=== PATIENT | male | born 1950 | race Caucasian/White ===

== ENCOUNTER 2017-01-14 08:40 | Inpatient (IN) | payer MEDICARE ==
--- NOTE | 2017-01-14 11:25 | ED PDOC ---
HPI: Abdomen Time Seen by Provider: 01/14/17 09:54 Chief Complaint (Nursing): Abdominal Pain History Per: Patient, Family History/Exam Limitations: no limitations Onset/Duration Of Symptoms: Gradual (3 weeks), Worse Since (yesterday) Current Symptoms Are (Timing): Still Present Context: Food Location Of Pain/Discomfort: RLQ (rads to right hip) Quality Of Discomfort: Dull Associated Symptoms: denies: Fever, Chills, Nausea, Vomiting, Diarrhea, Back Pain, Chest Pain, Constipation, Urinary Symptoms Exacerbating Factors: Walking Alleviating Factors: None Last Bowel Movement: Yesterday Additional History Per: Patient Additional Complaint(s): c/o right side abdominal pain for months and unsteady gait x3 weeks. brought in by daughter. was scheduled for colonoscopy for bloody stools but lost to f/u. 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 Past Medical History Reviewed: Historical Data, Nursing Documentation, Vital Signs Vital Signs: Last Vital Signs Temp 98.0 F 01/14/17 08:46 Pulse 88 01/14/17 08:46 Resp 20 01/14/17 08:46 BP 130/81 01/14/17 08:46 Pulse Ox 98 01/14/17 14:15 - Medical History PMH: CVA - Family History Family History: States: Unknown Family Hx - Living Arrangements Living Arrangements: With Family - Social History Current smoker - smoking cessation education provided: No - Allergies Allergies/Adverse Reactions: Allergies Allergy/AdvReac Type Severity Reaction Status Date / Time No Known Allergies Allergy Verified 01/14/17 09:04 Review of Systems ROS Statement: Except As Marked, All Systems Reviewed And Found Negative Constitutional: Negative for: Fever, Chills Cardiovascular: Negative for: Chest Pain, Palpitations Respiratory: Negative for: Cough, Shortness of Breath Gastrointestinal: Positive for: Abdominal Pain. Negative for: Nausea, Vomiting , Constipation, Melena, Hematochezia, Hematemesis Genitourinary Male: Negative for: Dysuria, Penile Pain Neurological: Positive for: Incoordination. Negative for: Weakness, Numbness, Change in Speech, Confusion, Seizures, Altered Mental Status, Headache, Dizziness Physical Exam - Reviewed Nursing Documentation Reviewed: Yes Vital Signs Reviewed: Yes - Physical Exam Appears: Positive for: Uncomfortable Head Exam: Positive for: ATRAUMATIC, NORMAL INSPECTION, NORMOCEPHALIC Eye Exam: Positive for: Normal appearance, EOMI. Negative for: Nystagmus, Periorbital swelling, Periorbital tenderness, Conjunctival injection, Scleral icterus ENT: Positive for: Pharynx Is (clear,mmm). Negative for: Nasal Congestion, Pharyngeal Erythema, Tonsillar Exudate, Tonsillar Swelling Neck: Positive for: Normal, Painless ROM, Supple. Negative for: Decreased ROM, Limited ROM, Trachea Midline Cardiovascular/Chest: Positive for: Regular Rate, Rhythm, Chest Non Tender. Negative for: Edema, Gallop, Murmur, Bradycardia, Tachycardia Respiratory: Positive for: Normal Breath Sounds. Negative for: Decreased Breath Sounds, Accessory Muscle Use, Crackles, Rales, Rhonchi, Stridor, Wheezing , Respiratory Distress Pulses-Radial (L): 2+ Pulses-Radial (R): 2+ Gastrointestinal/Abdominal: Positive for: Normal Exam, Bowel Sounds, Soft. Negative for: Tenderness Male Genital Exam: Positive for: normal genitalia. Negative for: scrotum tenderness (R), scrotum tenderness (L), testicular tenderness (R), urethral discharge Back: Positive for: Normal Inspection. Negative for: L CVA Tenderness, R CVA Tenderness, Vertebral Tenderness, Decreased ROM Extremity: Positive for: Normal ROM. Negative for: Tenderness, Pedal Edema, Calf Tenderness, Deformity, Swelling Neurologic/Psych: Positive for: Alert, prison guard supervisor II-XII, Oriented, Mood/Affect (calm) , Cerebellar Tests (nml), Gait (steady). Negative for: Motor/Sensory Deficits, Aphasia, Facial Droop - Laboratory Results Result Diagrams: 01/14/17 11:30 01/14/17 11:30 - ECG O2 Sat by Pulse Oximetry: 98 Pulse Ox Interpretation: Normal - Radiology X-Ray: Interpreted by Ca X-Ray Interpretation: No Acute Disease - Progress ED Course And Treament: ct scan revelas old frontal stroked, mild pancreatitis on labs gb us reveals small stones no signs of cholecystitis will admit for mild pancreatitis Re-evaluation Time: 14:12 Condition: Unchanged Medical Decision Making Medical Decision Making: PROCEDURE: CT abdomen pelvis dated 01/14/2017 HISTORY: Right flank pain COMPARISON: Comparison made with CT scan chest and abdomen dated 12/01/2016 TECHNIQUE: Contiguous axial images of the abdomen and pelvis. Oral contrast was administered. No IV contrast given. Coronal and Sagittal reformats generated. Radiation dose: Total exam DLP = 644.99 mGy-cm. This CT exam was performed using one or more of the following dose reduction techniques: Automated exposure control, adjustment of the mA and/or kV according to patient size, and/or use of iterative reconstruction technique. FINDINGS: LOWER THORAX: Lung bases clear. . There is a small hiatal hernia with wall thickening of the distal esophagus likely due to protrusion gastric mucosa. Possibility of esophagitis not excluded. Heart appears mildly enlarged. No significant pericardial effusion LIVER: The liver is normal in size though moderate nodular contour surface contour suggestive of hepatic cirrhosis. Additionally, there also appear to be varices in the left upper quadrant of the abdomen adjacent to the spleen and left kidney and pancreatic tail. . There also mild retroperitoneal varices and re- cannulization of the umbilical vein. Findings consistent with portal hypertension. Clinical correlation recommended. No definitive hepatic mass however the liver also exhibits mild low-attenuation changes suggesting some component of fatty infiltration no other infiltrative hepatocellular disease process not excluded. . GALLBLADDER AND BILE DUCTS: Cholelithiasis once again noted. No definitive evidence of pericholecystic fluid collections. PANCREAS: The pancreas appears grossly unremarkable without mass collection or calcification. No significant pancreatic ductal dilatation. . SPLEEN: No splenic mass or collection. ADRENALS: There are no adrenal lesions. KIDNEYS AND URETERS: Kidneys demonstrate relatively symmetric size. No evidence of nephrolithiasis or hydronephrosis. . Mild retroperitoneal varices as above. BLADDER: Urinary bladder is physiologically distended. No evidence of intraluminal urinary bladder calculi REPRODUCTIVE: Prostate gland measures approximately 3.7 cm in transverse dimension. The APPENDIX: Normal-appearing appendix best seen on axial image number [id number] and coronal image number [id number]. BOWEL: Evaluation of the bowel is limited due to the lack of oral contrast material. Stomach is incompletely distended. Visualized loops of small bowel exhibit normal contour and caliber. No evidence of acute mechanical small bowel obstruction. Moderate amount of stool seen throughout the cecum ascending and transverse colon suggesting mild fecal retention/constipation. No obvious mural wall thickening PERITONEUM: Unremarkable. No fluid collection. No free air. Tiny fat containing umbilical hernia. LYMPH NODES: Unremarkable. No enlarged lymph nodes. VASCULATURE: Unremarkable. No aortic aneurysm. BONES: Multilevel degenerative spondylosis of the lower thoracic and lumbar spine. No acute compression fractures. OTHER FINDINGS: None. IMPRESSION: Findings suggest hepatic cirrhosis and portal hypertension with abdominal varices and mild retroperitoneal varices. Recanalization of the umbilical vein. Cholelithiasis. No evidence of nephrolithiasis or hydronephrosis. No evidence of acute appendicitis. Findings suggest mild fecal retention/constipation. Small hiatal hernia. PROCEDURE: CT HEAD WITHOUT CONTRAST. HISTORY: unsteady gait COMPARISON: 05/28/2007 TECHNIQUE: Axial computed tomography images were obtained through the head/brain without intravenous contrast. Radiation dose: Total exam DLP = 860.65 mGy-cm. This CT exam was performed using one or more of the following dose reduction techniques: Automated exposure control, adjustment of the mA and/or kV according to patient size, and/or use of iterative reconstruction technique. FINDINGS: HEMORRHAGE: No intracranial hemorrhage. BRAIN: No intracranial mass. Old bilateral inferior frontal infarcts and old right temporal infarct, unchanged from prior head CT. No evidence of acute infarct. Mild chronic periventricular white matter ischemic change. VENTRICLES: Unremarkable. No hydrocephalus. CALVARIUM: Unremarkable. PARANASAL SINUSES: Unremarkable as visualized. No significant inflammatory changes. MASTOID AIR CELLS: Unremarkable as visualized. No inflammatory changes. OTHER FINDINGS: Cerumen noted in the external auditory canal bilaterally. Please correlate with direct visual inspection. IMPRESSION: No intracranial mass, hemorrhage or evidence of acute infarct. Old bilateral frontal infarct and old right temporal infarct. No significant change from 2007 Disposition - Clinical Impression Clinical Impression: Pancreatitis, acute - Patient ED Disposition Is Patient to be Admitted: No Counseled Patient/Family Regarding: Studies Performed, Diagnosis - Disposition Disposition Time: 13:10 Condition: STABLE Forms: [facility] ([place]) - POA Present On Arrival: None
[2017-01-14 11:36] LABS: BASO # 0.1 K/uL (0.0-0.2); EOS # 0.3 K/uL (0.0-0.7); EOS % 5.8 % (0.0-4.0); HEMATOCRIT 44.2 % (35.0-51.0); LYMPH % 37.7 % (20.0-40.0); MEAN CELL VOLUME 81.6 fl (80.0-94.0); MEAN CORPUSCULAR HEMOGLOBIN 26.2 pg (27.0-31.0); MEAN CORPUSCULAR HGB CONC 32.1 g/dL (33.0-37.0); MEAN PLATELET VOLUME 8.7 fl (7.2-11.7); MONO # 0.7 K/uL (0.0-0.8); NEUT # 2.2 K/uL (1.8-7.0); NEUT % 41.5 % (50.0-75.0); NRBC % 0.1 % (0.0-0.0); RED CELL DISTRIBUTION WIDTH 15.9 % (11.5-14.5); WHITE BLOOD COUNT 5.3 K/uL (4.8-10.8)
[2017-01-14 12:04] LABS: ALB/GLOB RATIO 1.1 (1.0-2.1); ALKALINE PHOSPHATASE 60 U/L (38-126); ALT/SGPT 42 U/L (21-72); AMYLASE 112 U/L (30-110); AST/SGOT 30 U/L (17-59); BILIRUBIN,TOTAL 0.7 mg/dl (0.2-1.3); BLOOD UREA NITROGEN 7 mg/dl (9-20); CALCIUM 8.9 mg/dL (8.4-10.2); CARBON DIOXIDE 25 mmol/L (22-30); CHLORIDE 110 mmol/L (98-107); GFR AFRICAN-AMERICAN > 60; GLUCOSE,RANDOM 116 mg/dL (75-110); LIPASE 330 U/L (23-300); POTASSIUM 3.4 MMOL/L (3.6-5.0); SODIUM 143 mmol/l (132-148); TOTAL PROTEIN 6.8 G/DL (6.3-8.2)
--- NOTE | 2017-01-14 12:19 | CT ---
PROCEDURE: CT HEAD WITHOUT CONTRAST. HISTORY: unsteady gait COMPARISON: 05/28/2007 TECHNIQUE: Axial computed tomography images were obtained through the head/brain without intravenous contrast. Radiation dose: Total exam DLP = 860.65 mGy-cm. This CT exam was performed using one or more of the following dose reduction techniques: Automated exposure control, adjustment of the mA and/or kV according to patient size, and/or use of iterative reconstruction technique. FINDINGS: HEMORRHAGE: No intracranial hemorrhage. BRAIN: No intracranial mass. Old bilateral inferior frontal infarcts and old right temporal infarct, unchanged from prior head CT. No evidence of acute infarct. Mild chronic periventricular white matter ischemic change. VENTRICLES: Unremarkable. No hydrocephalus. CALVARIUM: Unremarkable. PARANASAL SINUSES: Unremarkable as visualized. No significant inflammatory changes. MASTOID AIR CELLS: Unremarkable as visualized. No inflammatory changes. OTHER FINDINGS: Cerumen noted in the external auditory canal bilaterally. Please correlate with direct visual inspection. IMPRESSION: No intracranial mass, hemorrhage or evidence of acute infarct. Old bilateral frontal infarct and old right temporal infarct. No significant change from 05/28/2007
--- NOTE | 2017-01-14 13:10 | CT ---
PROCEDURE: CT abdomen pelvis dated 01/14/2017 HISTORY: Right flank pain COMPARISON: Comparison made with CT scan chest and abdomen dated 12/01/2016 TECHNIQUE: Contiguous axial images of the abdomen and pelvis. Oral contrast was administered. No IV contrast given. Coronal and Sagittal reformats generated. Radiation dose: Total exam DLP = 644.99 mGy-cm. This CT exam was performed using one or more of the following dose reduction techniques: Automated exposure control, adjustment of the mA and/or kV according to patient size, and/or use of iterative reconstruction technique. FINDINGS: LOWER THORAX: Lung bases clear. . There is a small hiatal hernia with wall thickening of the distal esophagus likely due to protrusion gastric mucosa. Possibility of esophagitis not excluded. Heart appears mildly enlarged. No significant pericardial effusion LIVER: The liver is normal in size though moderate nodular contour surface contour suggestive of hepatic cirrhosis. Additionally, there also appear to be varices in the left upper quadrant of the abdomen adjacent to the spleen and left kidney and pancreatic tail. . There also mild retroperitoneal varices and re- cannulization of the umbilical vein. Findings consistent with portal hypertension. Clinical correlation recommended. No definitive hepatic mass however the liver also exhibits mild low-attenuation changes suggesting some component of fatty infiltration no other infiltrative hepatocellular disease process not excluded. . GALLBLADDER AND BILE DUCTS: Cholelithiasis once again noted. No definitive evidence of pericholecystic fluid collections. PANCREAS: The pancreas appears grossly unremarkable without mass collection or calcification. No significant pancreatic ductal dilatation. . SPLEEN: No splenic mass or collection. ADRENALS: There are no adrenal lesions. KIDNEYS AND URETERS: Kidneys demonstrate relatively symmetric size. No evidence of nephrolithiasis or hydronephrosis. . Mild retroperitoneal varices as above. BLADDER: Urinary bladder is physiologically distended. No evidence of intraluminal urinary bladder calculi REPRODUCTIVE: Prostate gland measures approximately 3.7 cm in transverse dimension. The APPENDIX: Normal-appearing appendix best seen on axial image number [id number] and coronal image number [id number]. BOWEL: Evaluation of the bowel is limited due to the lack of oral contrast material. Stomach is incompletely distended. Visualized loops of small bowel exhibit normal contour and caliber. No evidence of acute mechanical small bowel obstruction. Moderate amount of stool seen throughout the cecum ascending and transverse colon suggesting mild fecal retention/constipation. No obvious mural wall thickening PERITONEUM: Unremarkable. No fluid collection. No free air. Tiny fat containing umbilical hernia. LYMPH NODES: Unremarkable. No enlarged lymph nodes. VASCULATURE: Unremarkable. No aortic aneurysm. BONES: Multilevel degenerative spondylosis of the lower thoracic and lumbar spine. No acute compression fractures. OTHER FINDINGS: None. IMPRESSION: Findings suggest hepatic cirrhosis and portal hypertension with abdominal varices and mild retroperitoneal varices. Recanalization of the umbilical vein. Cholelithiasis. No evidence of nephrolithiasis or hydronephrosis. No evidence of acute appendicitis. Findings suggest mild fecal retention/constipation. Small hiatal hernia.
[2017-01-14 13:13] LABS: URINE BILIRUBIN SMALL (NEGATIVE); URINE BLOOD NEGATIVE (NEGATIVE); URINE COLOR AMBER (YELLOW); URINE GLUCOSE (UA) NEG (Normal); URINE KETONE NEGATIVE (NEGATIVE); URINE LEUKOCYTE ESTERASE NEG Leu/uL (Negative); URINE PROTEIN 30 mg/dL (NEGATIVE); WBC URINE < 1 /hpf (0-5)
[2017-01-14] MEDS ORDERED: Ampicillin/Sulbactam 3 GM in Sodium Chloride 0.9% 100 ML IVPB STA (14:10)
--- NOTE | 2017-01-14 15:03 | US ---
HISTORY: ruq abd pain COMPARISON: None. TECHNIQUE: Sonographic evaluation of the right upper quadrant of the abdomen. FINDINGS: LIVER: Measures 17.4 cm in length. Diffusely increased echogenicity of the liver parenchyma. Consistent with fatty infiltration. Nodular hepatic contour suggestive of hepatic cirrhosis. No focal mass. No biliary ductal dilatation. GALLBLADDER: Cholelithiasis is noted. There is no mural thickening or pericholecystic fluid. There is no sonographic Mary sign. COMMON BILE DUCT: Measures 3 mm. No stones. No dilatation. PANCREAS: Unremarkable as visualized. No mass. No ductal dilatation. RIGHT KIDNEY: Measures 9.5 cm in length. Normal echogenicity. No calculus, mass, or hydronephrosis. AORTA: Not well-visualized due to bowel gas IVC: Unremarkable. OTHER FINDINGS: None . IMPRESSION: Cholelithiasis without evidence of cholecystitis. Probable hepatic cirrhosis and fatty infiltration of the liver. No additional abnormality.
--- NOTE | 2017-01-14 15:20 | RAD ---
HISTORY: abd pain COMPARISON: No prior. FINDINGS: LUNGS: No active pulmonary disease. PLEURA: No significant pleural effusion identified, no pneumothorax apparent. CARDIOVASCULAR: Normal. OSSEOUS STRUCTURES: No significant abnormalities. VISUALIZED UPPER ABDOMEN: Normal. OTHER FINDINGS: None. IMPRESSION: No active disease.
--- NOTE | 2017-01-14 15:53 | CP.PCM.CON ---
History of Present Illness - History of Present Illness History of Present Illness: Surgery consult 66M with PMH of EtOH abuse, CVA with residual R side weakness, and GI bleed came to ED with back pain. Pt reports that he has been having back pain for few years. Pain doesn't radiate. Denies dysuria, hematuria, hematochezia, hematemesis, abd pain, N/V/D/CP/SOB/recent trauma/sick contact/recent travel. Pt reports that he used to drink alcohol [address] and US of the abd shows gallstones. LFT wnl. No leukocytosis. Lipase 300. Surgery is consulted to evaluate for cholelithiasis. Review of Systems - Review of Systems Review of Systems: See HPI Past Patient History - Past Social History Smoking Status: Never Smoked - NEUROLOGICAL HX Cerebrovascular Accident: Yes - GASTROINTESTINAL Other/Comment: Gall stones. liver cirrhosis - GENITOURINARY/GYNECOLOGICAL Hx Genitourinary Disorders: Yes (Gall stones, liver cirrhosis) - PSYCHIATRIC Hx Substance Use: No Meds Allergies/Adverse Reactions: Allergies Allergy/AdvReac Type Severity Reaction Status Date / Time No Known Allergies Allergy Verified 01/14/17 09:04 Physical Exam - Constitutional Appears: No Acute Distress - Head Exam Head Exam: ATRAUMATIC, NORMAL INSPECTION, NORMOCEPHALIC - Eye Exam Eye Exam: EOMI, Normal appearance, PERRL Pupil Exam: NORMAL ACCOMODATION, PERRL - ENT Exam ENT Exam: Mucous Membranes Moist, Normal Exam - Neck Exam Neck exam: Positive for: Normal Inspection - Respiratory Exam Respiratory Exam: Clear to Auscultation Bilateral, NORMAL BREATHING PATTERN - Cardiovascular Exam Cardiovascular Exam: REGULAR RHYTHM - GI/Abdominal Exam GI & Abdominal Exam: Soft. absent: Distended, Firm, Guarding, Hernia, Tenderness - Exam Exam: NORMAL INSPECTION - Back Exam Back exam: NORMAL INSPECTION, tenderness - Neurological Exam Neurological exam: Alert, CN II-XII Intact, Normal Gait, Oriented x3, Reflexes Normal - Psychiatric Exam Psychiatric exam: Normal Affect, Normal Mood - Skin Skin Exam: Dry, Intact, Normal Color, Warm Results - Vital Signs Recent Vital Signs: Last Vital Signs Temp 98.0 F 01/14/17 15:35 Pulse 88 01/14/17 15:35 Resp 20 01/14/17 15:35 BP 130/81 01/14/17 15:35 Pulse Ox 98 01/14/17 14:15 - Labs Result Diagrams: 01/14/17 11:30 01/14/17 11:30 Labs: Laboratory Results - last 24 hr 01/14/17 01/14/17 01/14/17 11:30 11:30 12:45 WBC 5.3 RBC 5.41 Hgb 14.2 Hct 44.2 MCV 81.6 MCH 26.2 L MCHC 32.1 L RDW 15.9 H Plt Count 213 MPV 8.7 Neut % (Auto) 41.5 L Lymph % (Auto) 37.7 [place] % (Auto) 14.0 H Eos % (Auto) 5.8 H Baso % (Auto) 1.0 Neut # 2.2 Lymph # 2.0 [place] # 0.7 Eos # 0.3 Baso # 0.1 Sodium 143 Potassium 3.4 L Chloride 110 H Carbon Dioxide 25 Anion Gap 11 BUN 7 L Creatinine 0.7 L Est GFR ( Amer) > 60 Est GFR (Non-Af Amer) > 60 Random Glucose 116 H Calcium 8.9 Total Bilirubin 0.7 AST 30 ALT 42 Alkaline Phosphatase 60 Troponin I < 0.0120 Total Protein 6.8 Albumin 3.5 Globulin 3.3 Albumin/Globulin Ratio 1.1 Amylase 112 H Lipase 330 H Urine Color Radha Urine Clarity Slighty-cloudy Urine pH 5.0 Ur Specific [place] 1.035 H Urine Protein 30 Urine Glucose (UA) Neg Urine Ketones Negative Urine Blood Negative Urine Nitrate Negative Urine Bilirubin Small Urine Urobilinogen 2.0 Ur Leukocyte Esterase Neg Urine Microscopic WBC < 1 Ur Squamous Epith Cells < 1 Assessment & Plan - Assessment and Plan (Free Text) Assessment: Cholelithiasis , alcoholic pancreatitis, r/o gallstone pancreatitis CT and US of the abd shows gallstones. LFT wnl. No leukocytosis. Lipase 300. -NPO -IVF -Likely outpatient elective surgery if symptomatic -GI on board Will DW attending
[2017-01-14] MEDS ORDERED: Lactated Ringer's 1,000 ML IV SCH (16:00)
[2017-01-14] MEDS: Dextrose 5%/Lactated Ringer's 1,000 ML IV SCH (17:43)
[2017-01-15] MEDS: Dextrose 5%/Lactated Ringer's 1,000 ML IV SCH ×2 (03:55→16:36)
[2017-01-15 05:50] LABS: HEMATOCRIT 48.7 % (35.0-51.0); MEAN CELL VOLUME 82.3 fl (80.0-94.0); MEAN CORPUSCULAR HEMOGLOBIN 26.2 pg (27.0-31.0); MEAN CORPUSCULAR HGB CONC 31.9 g/dL (33.0-37.0); RED CELL DISTRIBUTION WIDTH 16.2 % (11.5-14.5); WHITE BLOOD COUNT 6.3 K/uL (4.8-10.8)
[2017-01-15 06:03] LABS: ALB/GLOB RATIO 1.1 (1.0-2.1); ALKALINE PHOSPHATASE 76 U/L (38-126); ALT/SGPT 36 U/L (21-72); AMYLASE 103 U/L (30-110); AST/SGOT 28 U/L (17-59); BILIRUBIN,TOTAL 1.2 mg/dl (0.2-1.3); BLOOD UREA NITROGEN 5 mg/dl (9-20); CALCIUM 9.6 mg/dL (8.4-10.2); CARBON DIOXIDE 26 mmol/L (22-30); CHLORIDE 108 mmol/L (98-107); GFR AFRICAN-AMERICAN > 60; GLUCOSE,RANDOM 79 mg/dL (75-110); LIPASE 235 U/L (23-300); POTASSIUM 3.5 MMOL/L (3.6-5.0); SODIUM 145 mmol/l (132-148); TOTAL PROTEIN 7.5 G/DL (6.3-8.2)
--- NOTE | 2017-01-15 11:28 | CP.PCM.PN ---
Subjective - Date & Time of Evaluation Date of Evaluation: 01/15/17 Time of Evaluation: 11:25 - Subjective Subjective: General Surgery - Dr. Contreras Pt S&E. NAEO. Pt states his pain is resolved. He is hungry and requests to eat today. No N/V, F/C, SOB/Cp. Objective - Vital Signs/Intake and Output Vital Signs (last 24 hours): Temp Pulse Resp BP Pulse Ox 97.9 F 62 18 156/89 H 97 01/15/17 07:25 01/15/17 07:25 01/15/17 07:25 01/15/17 07:25 01/15/17 07:25 - Medications Medications: Current Medications Dextrose/Lactated Ringer's (Dextrose 5%/Lactated Ringer's) 1,000 mls @ 100 mls/ hr IV .Q10H FAY Stop: 01/15/17 17:37 Last Admin: 01/15/17 03:55 Dose: Not Given Tramadol HCl (Ultram) 50 mg PO Q8 PRN PRN Reason: Pain, moderate (4-7) - Labs Labs: 01/15/17 05:10 01/15/17 05:10 - Constitutional Appears: No Acute Distress - Head Exam Head Exam: ATRAUMATIC, NORMAL INSPECTION, NORMOCEPHALIC - Eye Exam Eye Exam: Normal appearance - Respiratory Exam Respiratory Exam: NORMAL BREATHING PATTERN. absent: Respiratory Distress - Cardiovascular Exam Cardiovascular Exam: REGULAR RHYTHM - GI/Abdominal Exam GI & Abdominal Exam: Soft. absent: Distended, Firm, Guarding, Rigid, Tenderness , Rebound - Neurological Exam Neurological Exam: Alert, Oriented x3 - Psychiatric Exam Psychiatric exam: Normal Affect, Normal Mood - Skin Skin Exam: Dry, Intact Assessment and Plan - Assessment and Plan (Free Text) Plan: 66M w/ Cholelithiasis, poss. mild pancreatitis, resolving -Advance diet as tolerated -No plans for surgery at this time -Pt may F/U in the office with Dr. Contreras to discuss elective cholecystectomy if symptoms recurr Will MATTHEW Contreras
[2017-01-15 12:37] LABS: ALB/GLOB RATIO 1.2 (1.0-2.1); BILIRUBIN,TOTAL 1.1 mg/dl (0.2-1.3); TOTAL PROTEIN 6.8 G/DL (6.3-8.2)
[2017-01-15] MEDS ORDERED: Potassium Chloride 20 mEq ER Tab PO ONE (14:51)
[2017-01-16 07:30] LABS: HEMATOCRIT 45.2 % (35.0-51.0); MEAN CELL VOLUME 81.9 fl (80.0-94.0); MEAN CORPUSCULAR HEMOGLOBIN 26.5 pg (27.0-31.0); MEAN CORPUSCULAR HGB CONC 32.4 g/dL (33.0-37.0); RED CELL DISTRIBUTION WIDTH 16.2 % (11.5-14.5)
[2017-01-16 07:46] LABS: BLOOD UREA NITROGEN 8 mg/dl (9-20); CALCIUM 9.2 mg/dL (8.4-10.2); CARBON DIOXIDE 27 mmol/L (22-30); CHLORIDE 108 mmol/L (98-107); GFR AFRICAN-AMERICAN > 60; GLUCOSE,RANDOM 83 mg/dL (75-110); POTASSIUM 3.9 MMOL/L (3.6-5.0); SODIUM 142 mmol/l (132-148)
--- NOTE | 2017-01-16 09:42 | CARD ---
APPROVED REPORT EKG Measurement Heart [id number] <Conclusion> Sinus bradycardia Otherwise normal ECG
--- NOTE | 2017-01-16 12:45 | CP.PCM.PN ---
Subjective - Date & Time of Evaluation Date of Evaluation: 01/16/17 Time of Evaluation: 12:30 - Subjective Subjective: no new complaints Objective - Vital Signs/Intake and Output Vital Signs (last 24 hours): Temp Pulse Resp BP Pulse Ox 97.9 F 54 L 18 100/65 96 01/16/17 09:00 01/16/17 09:00 01/16/17 09:00 01/16/17 09:00 01/16/17 09:00 - Medications Medications: Current Medications Lactulose (Enulose) 20 gm PO BID PRN PRN Reason: Constipation Last Admin: 01/16/17 08:57 Dose: 20 gm Tramadol HCl (Ultram) 50 mg PO Q8 PRN PRN Reason: Pain, moderate (4-7) - Labs Labs: 01/16/17 06:45 01/16/17 06:45 - Respiratory Exam Respiratory Exam: NORMAL BREATHING PATTERN - Cardiovascular Exam Cardiovascular Exam: REGULAR RHYTHM - GI/Abdominal Exam GI & Abdominal Exam: Soft, Normal Bowel Sounds Assessment and Plan - Assessment and Plan (Free Text) Assessment: 66 yo male with cirrhosis no bleeding hgb stable outpatient f/u for colonoscopy
--- NOTE | 2017-01-16 13:33 | CP.PCM.PN ---
<Rianna Roberts - Last Filed: 01/16/17 13:31> Subjective - Date & Time of Evaluation Date of Evaluation: 01/16/17 Time of Evaluation: 09:30 - Subjective Subjective: patient seen and examined with attending Feeling well this morning Denies Cp, SOB, N/V, abdominal pain, diarrheas afebrile, VS stable WNL Objective - Vital Signs/Intake and Output Vital Signs (last 24 hours): Temp Pulse Resp BP Pulse Ox 97.9 F 54 L 18 100/65 96 01/16/17 09:00 01/16/17 09:00 01/16/17 09:00 01/16/17 09:00 01/16/17 09:00 - Medications Medications: Current Medications Lactulose (Enulose) 20 gm PO BID PRN PRN Reason: Constipation Last Admin: 01/16/17 08:57 Dose: 20 gm Tramadol HCl (Ultram) 50 mg PO Q8 PRN PRN Reason: Pain, moderate (4-7) - Labs Labs: 01/16/17 06:45 01/16/17 06:45 - Constitutional Appears: No Acute Distress - ENT Exam ENT Exam: Mucous Membranes Moist - Respiratory Exam Respiratory Exam: Clear to Ausculation Bilateral, NORMAL BREATHING PATTERN - Cardiovascular Exam Cardiovascular Exam: REGULAR RHYTHM, +S1, +S2 - GI/Abdominal Exam GI & Abdominal Exam: Soft, Normal Bowel Sounds. absent: Distended, Rigid, Tenderness - Extremities Exam Extremities Exam: Normal Inspection. absent: Calf Tenderness, Pedal Edema - Neurological Exam Neurological Exam: Alert, Awake, Oriented x3 Assessment and Plan - Assessment and Plan (Free Text) Plan: Hepatic cirrhosis w/ portal hypertension most likely to EtOH abuse stable, no evidence of active bleeding tolerating diet H/H stable :14.6/45.2 f/u Liver profile GI on board, Dr. Porter Abd CT showed liver cirrhosis with portal HTN, no evidence of ascitis Colonoscopy recommended by GI as outpatient Colelithiasis no evidence of cholecystitis CT and US of the abd shows gallstones. as per surgery no surgical intervention at this time -Likely outpatient elective surgery if symptomatic as per surgical team recommendations h/o CVA consider skilled nursing rehab DVT prophylaxis ambulating SCDs while in bed <Albino Diana - Last Filed: 01/17/17 10:59> Objective - Vital Signs/Intake and Output Vital Signs (last 24 hours): Temp Pulse Resp BP Pulse Ox 97.9 F 59 L 18 118/76 98 01/17/17 08:45 01/17/17 08:45 01/17/17 08:45 01/17/17 08:45 01/17/17 08:45 - Medications Medications: Current Medications Lactulose (Enulose) 20 gm PO BID PRN PRN Reason: Constipation Last Admin: 01/16/17 08:57 Dose: 20 gm Tramadol HCl (Ultram) 50 mg PO Q8 PRN PRN Reason: Pain, moderate (4-7) - Labs Labs: 01/16/17 06:45 01/16/17 06:45 Assessment and Plan (1) Pancreatitis, acute Status: Acute (2) Hypokalemia Status: Acute (3) Cholelithiasis Status: Chronic (4) Hepatic cirrhosis Status: Chronic (5) History of CVA (cerebrovascular accident) Status: Chronic (6) Gait abnormality Status: Acute - Assessment and Plan (Free Text) Plan: I was present during evaluation and discussed with Dr Armando boyer plans of care and tx.
[2017-01-16 13:43] LABS: BILIRUBIN,TOTAL 0.9 mg/dl (0.2-1.3); TOTAL PROTEIN 6.7 G/DL (6.3-8.2)
--- NOTE | 2017-01-16 13:52 | CP.PCM.CON ---
History of Present Illness - History of Present Illness History of Present Illness: psychiatry consult ordered by dr. sanchez reason: made suicidal threats per family cc: i was just joking, im not that type hpi: 66 yo male . no prior psych history. living with his two adult children. he is retired. he is admitted medically with chirrhosis and unsteady gait. states his in march 2016. he admits to some struggles with sadness after this, but finds that he has been doing better as time passes. he denies that he ever tried to kill himself and denies that he would drink poison. he denies any manic symptoms. denies change in sleep, denies feeling suicidal. denies access to firearms past psych: denies social: born in [place]. 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 . denies history of abuse. denies substance use or alcohol use. medical see dr. trimble notes mse: alert, oriented x 3. mood is "fine" affect constricted. denies si/hi. denies a/v hallucinations. pt is guarded. speech is normal rate/tone volume. fair i/j assessment: adjustment disorder recommendation: can be referred to outpt therapy for further assessment Past Patient History - Past Medical History & Family History Past Medical History?: Yes - Past Social History Smoking Status: Former Smoker - CARDIAC Hx Cardiac Disorders: No - PULMONARY Hx Respiratory Disorders: No - NEUROLOGICAL Hx Neurological Disorder: Yes HX Cerebrovascular Accident: Yes (2006) - HEENT Hx HEENT Problems: No - RENAL Hx Chronic Kidney Disease: No - ENDOCRINE/METABOLIC Hx Endocrine Disorders: No - HEMATOLOGICAL/ONCOLOGICAL Hx Blood Disorders: No - INTEGUMENTARY Hx Dermatological Problems: No - MUSCULOSKELETAL/RHEUMATOLOGICAL Hx Musculoskeletal Disorders: No Hx Falls: No - GASTROINTESTINAL Hx Gastrointestinal Disorders: Yes Other/Comment: Gall stones. liver cirrhosis. GI bleed - GENITOURINARY/GYNECOLOGICAL Hx Genitourinary Disorders: Yes (Gall stones, liver cirrhosis) - PSYCHIATRIC Hx Psychophysiologic Disorder: No Hx Substance Use: No - SURGICAL HISTORY Hx Surgeries: No - ANESTHESIA Hx Anesthesia: No Meds Allergies/Adverse Reactions: Allergies Allergy/AdvReac Type Severity Reaction Status Date / Time No Known Allergies Allergy Verified 01/14/17 09:04 - Medications Medications: Current Medications Lactulose (Enulose) 20 gm PO BID PRN PRN Reason: Constipation Last Admin: 01/16/17 08:57 Dose: 20 gm Tramadol HCl (Ultram) 50 mg PO Q8 PRN PRN Reason: Pain, moderate (4-7) Results - Vital Signs Recent Vital Signs: Last Vital Signs Temp 97.9 F 01/16/17 09:00 Pulse 54 L 01/16/17 09:00 Resp 18 01/16/17 09:00 BP 100/65 01/16/17 09:00 Pulse Ox 96 01/16/17 09:00 - Labs Result Diagrams: 01/16/17 06:45 01/16/17 06:45 Labs: Laboratory Results - last 24 hr 01/15/17 01/16/17 01/16/17 22:17 06:45 06:45 WBC 6.0 RBC 5.52 Hgb 14.6 Hct 45.2 MCV 81.9 MCH 26.5 L MCHC 32.4 L RDW 16.2 H Plt Count 231 Sodium 142 Potassium 3.9 Chloride 108 H Carbon Dioxide 27 Anion Gap 11 BUN 8 L Creatinine 1.0 Est GFR ( Amer) > 60 Est GFR (Non-Af Amer) > 60 Random Glucose 83 Calcium 9.2 Total Bilirubin Direct Bilirubin AST ALT Alkaline Phosphatase Total Protein Albumin Globulin Albumin/Globulin Ratio Urine Opiates Screen Negative Urine Methadone Screen Negative Ur Barbiturates Screen Negative Ur Phencyclidine Scrn Negative Ur Amphetamines Screen Negative U Benzodiazepines Scrn Negative U Oth Cocaine Metabols Negative U Cannabinoids Screen Negative 01/16/17 13:25 WBC RBC Hgb Hct MCV MCH MCHC RDW Plt Count Sodium Potassium Chloride Carbon Dioxide Anion Gap BUN Creatinine Est GFR ( Amer) Est GFR (Non-Af Amer) Random Glucose Calcium Total Bilirubin 0.9 Direct Bilirubin 0.4 AST 29 ALT 26 Alkaline Phosphatase 63 Total Protein 6.7 Albumin 3.4 L Globulin 3.3 Albumin/Globulin Ratio 1.0 Urine Opiates Screen Urine Methadone Screen Ur Barbiturates Screen Ur Phencyclidine Scrn Ur Amphetamines Screen U Benzodiazepines Scrn U Oth Cocaine Metabols U Cannabinoids Screen
--- NOTE | 2017-01-16 19:32 | CP.PCM.DIS ---
<Rianna Roberts - Last Filed: 01/16/17 19:29> Provider - Provider Date of Admission: 01/14/17 15:18 Attending physician: Albino Diana MD Consults: GI , Dr. Porter Genral surgery, Dr. Ben Clifford, Dr. Silva Time Spent in preparation of Discharge (in minutes): 30 Diagnosis - Discharge Diagnosis (1) Hepatic cirrhosis Status: Chronic Comment: w/ portal hypertension. most likely to EtOH abuse. stable, no evidence of active bleeding. tolerating diet. H/H stable :14.6/45.2. Colonoscopy recommended by GI as outpatient. F/u with PMD as outpatient (2) Cholelithiasis Status: Chronic Comment: no evidence of cholecystitis. CT and US of the abd shows gallstones. as per surgery no surgical intervention at this time. -Likely outpatient elective surgery if symptomatic as per surgical team recommendations (3) History of CVA (cerebrovascular accident) Status: Chronic Comment: With residual weakness, recommended terminal [facility] (4) Hypokalemia Status: Acute Comment: resolved during admission Hospital Course - Lab Results Lab Results: Most Recent Lab Values WBC 6.0 K/uL (4.8-10.8) 01/16/17 06:45 RBC 5.52 Mil/uL (4.40-5.90) 01/16/17 06:45 Hgb 14.6 g/dL (12.0-18.0) 01/16/17 06:45 Hct 45.2 % (35.0-51.0) 01/16/17 06:45 MCV 81.9 fl (80.0-94.0) 01/16/17 06:45 MCH 26.5 pg (27.0-31.0) L 01/16/17 06:45 MCHC 32.4 g/dL (33.0-37.0) L 01/16/17 06:45 RDW 16.2 % (11.5-14.5) H 01/16/17 06:45 Plt Count 231 K/uL (130-400) 01/16/17 06:45 MPV 8.7 fl (7.2-11.7) 01/14/17 11:30 Neut % (Auto) 41.5 % (50.0-75.0) L 01/14/17 11:30 Lymph % (Auto) 37.7 % (20.0-40.0) 01/14/17 11:30 Dukes % (Auto) 14.0 % (0.0-10.0) H 01/14/17 11:30 Eos % (Auto) 5.8 % (0.0-4.0) H 01/14/17 11:30 Baso % (Auto) 1.0 % (0.0-2.0) 01/14/17 11:30 Neut # 2.2 K/uL (1.8-7.0) 01/14/17 11:30 Lymph # 2.0 K/uL (1.0-4.3) 01/14/17 11:30 Dukes # 0.7 K/uL (0.0-0.8) 01/14/17 11:30 Eos # 0.3 K/uL (0.0-0.7) 01/14/17 11:30 Baso # 0.1 K/uL (0.0-0.2) 01/14/17 11:30 Sodium 142 mmol/l (132-148) 01/16/17 06:45 Potassium 3.9 MMOL/L (3.6-5.0) 01/16/17 06:45 Chloride 108 mmol/L (98-107) H 01/16/17 06:45 Carbon Dioxide 27 mmol/L (22-30) 01/16/17 06:45 Anion Gap 11 (10-20) 01/16/17 06:45 BUN 8 mg/dl (9-20) L 01/16/17 06:45 Creatinine 1.0 mg/dL (0.8-1.5) 01/16/17 06:45 Est GFR ( Amer) > 60 01/16/17 06:45 Est GFR (Non-Af Amer) > 60 01/16/17 06:45 Random Glucose 83 mg/dL (75-110) 01/16/17 06:45 Calcium 9.2 mg/dL (8.4-10.2) 01/16/17 06:45 Total Bilirubin 0.9 mg/dl (0.2-1.3) 01/16/17 13:25 Direct Bilirubin 0.4 mg/ml (0.0-0.4) 01/16/17 13:25 AST 29 U/L (17-59) 01/16/17 13:25 ALT 26 U/L (21-72) 01/16/17 13:25 Alkaline Phosphatase 63 U/L (38-126) 01/16/17 13:25 Ammonia 21 umo/L (16-60) 01/15/17 12:20 Troponin I < 0.0120 ng/mL (0.00-0.120) 01/14/17 11:30 Total Protein 6.7 G/DL (6.3-8.2) 01/16/17 13:25 Albumin 3.4 g/dL (3.5-5.0) L 01/16/17 13:25 Globulin 3.3 gm/dL (2.2-3.9) 01/16/17 13:25 Albumin/Globulin Ratio 1.0 (1.0-2.1) 01/16/17 13:25 Amylase 103 U/L (30-110) 01/15/17 05:10 Lipase 235 U/L (23-300) 01/15/17 05:10 Alpha Fetoprotein 1.6 IU/mL (0.0-7.22) 01/15/17 12:20 Urine Color Radha (YELLOW) 01/14/17 12:45 Urine Clarity Slighty-cloudy (Clear) 01/14/17 12:45 Urine pH 5.0 (5.0-8.0) 01/14/17 12:45 Ur Specific Taylor 1.035 (1.003-1.030) H 01/14/17 12:45 Urine Protein 30 mg/dL (NEGATIVE) 01/14/17 12:45 Urine Glucose (UA) Neg mg/dL (Normal) 01/14/17 12:45 Urine Ketones Negative mg/dL (NEGATIVE) 01/14/17 12:45 Urine Blood Negative (NEGATIVE) 01/14/17 12:45 Urine Nitrate Negative (NEGATIVE) 01/14/17 12:45 Urine Bilirubin Small (NEGATIVE) 01/14/17 12:45 Urine Urobilinogen 2.0 mg/dL (0.2-1.0) 01/14/17 12:45 Ur Leukocyte Esterase Neg Jhoan/uL (Negative) 01/14/17 12:45 Urine Microscopic WBC < 1 /hpf (0-5) 01/14/17 12:45 Ur Squamous Epith Cells < 1 /hpf (0-5) 01/14/17 12:45 Urine Opiates Screen Negative (NEGATIVE) 01/15/17 22:17 Urine Methadone Screen Negative (NEGATIVE) 01/15/17 22:17 Ur Barbiturates Screen Negative (NEGATIVE) 01/15/17 22:17 Ur Phencyclidine Scrn Negative (NEGATIVE) 01/15/17 22:17 Ur Amphetamines Screen Negative (NEGATIVE) 01/15/17 22:17 U Benzodiazepines Scrn Negative (NEGATIVE) 01/15/17 22:17 U Oth Cocaine Metabols Negative (NEGATIVE) 01/15/17 22:17 U Cannabinoids Screen Negative (NEGATIVE) 01/15/17 22:17 Discharge Exam - Head Exam Head Exam: ATRAUMATIC, NORMAL INSPECTION, NORMOCEPHALIC - Additional Findings Additional findings: Constitutional Appears: No Acute Distress - ENT Exam ENT Exam: Mucous Membranes Moist - Respiratory Exam Respiratory Exam: Clear to Ausculation Bilateral, NORMAL BREATHING PATTERN - Cardiovascular Exam Cardiovascular Exam: REGULAR RHYTHM, +S1, +S2 - GI/Abdominal Exam GI & Abdominal Exam: Soft, Normal Bowel Sounds. absent: Distended, Rigid, Tenderness - Extremities Exam Extremities Exam: Normal Inspection. absent: Calf Tenderness, Pedal Edema - Neurological Exam Neurological Exam: Alert, Awake, Oriented x3 Discharge Plan - Follow Up Plan Condition: STABLE Disposition: HOME/ ROUTINE Patient education suggested?: Yes Instructions: Pancreatitis (DC) Additional Instructions: ffor suibacute rehab in am f/u with GI after DC for Colonoscopy f/u with Psych as outpatient as recommended <Albino Diana - Last Filed: 01/17/17 10:54> Provider - Provider Date of Admission: 01/14/17 15:18 Attending physician: Albino Diana MD Diagnosis - Discharge Diagnosis (1) Pancreatitis, acute Status: Acute (2) Hypokalemia Status: Acute (3) Cholelithiasis Status: Chronic (4) Hepatic cirrhosis Status: Chronic (5) History of CVA (cerebrovascular accident) Status: Chronic (6) Gait abnormality Status: Acute Hospital Course - Lab Results Lab Results: Most Recent Lab Values WBC 6.0 K/uL (4.8-10.8) 01/16/17 06:45 RBC 5.52 Mil/uL (4.40-5.90) 01/16/17 06:45 Hgb 14.6 g/dL (12.0-18.0) 01/16/17 06:45 Hct 45.2 % (35.0-51.0) 01/16/17 06:45 MCV 81.9 fl (80.0-94.0) 01/16/17 06:45 MCH 26.5 pg (27.0-31.0) L 01/16/17 06:45 MCHC 32.4 g/dL (33.0-37.0) L 01/16/17 06:45 RDW 16.2 % (11.5-14.5) H 01/16/17 06:45 Plt Count 231 K/uL (130-400) 01/16/17 06:45 MPV 8.7 fl (7.2-11.7) 01/14/17 11:30 Neut % (Auto) 41.5 % (50.0-75.0) L 01/14/17 11:30 Lymph % (Auto) 37.7 % (20.0-40.0) 01/14/17 11:30 Dukes % (Auto) 14.0 % (0.0-10.0) H 01/14/17 11:30 Eos % (Auto) 5.8 % (0.0-4.0) H 01/14/17 11:30 Baso % (Auto) 1.0 % (0.0-2.0) 01/14/17 11:30 Neut # 2.2 K/uL (1.8-7.0) 01/14/17 11:30 Lymph # 2.0 K/uL (1.0-4.3) 01/14/17 11:30 Dukes # 0.7 K/uL (0.0-0.8) 01/14/17 11:30 Eos # 0.3 K/uL (0.0-0.7) 01/14/17 11:30 Baso # 0.1 K/uL (0.0-0.2) 01/14/17 11:30 Sodium 142 mmol/l (132-148) 01/16/17 06:45 Potassium 3.9 MMOL/L (3.6-5.0) 01/16/17 06:45 Chloride 108 mmol/L (98-107) H 01/16/17 06:45 Carbon Dioxide 27 mmol/L (22-30) 01/16/17 06:45 Anion Gap 11 (10-20) 01/16/17 06:45 BUN 8 mg/dl (9-20) L 01/16/17 06:45 Creatinine 1.0 mg/dL (0.8-1.5) 01/16/17 06:45 Est GFR ( Amer) > 60 01/16/17 06:45 Est GFR (Non-Af Amer) > 60 01/16/17 06:45 Random Glucose 83 mg/dL (75-110) 01/16/17 06:45 Calcium 9.2 mg/dL (8.4-10.2) 01/16/17 06:45 Total Bilirubin 0.9 mg/dl (0.2-1.3) 01/16/17 13:25 Direct Bilirubin 0.4 mg/ml (0.0-0.4) 01/16/17 13:25 AST 29 U/L (17-59) 01/16/17 13:25 ALT 26 U/L (21-72) 01/16/17 13:25 Alkaline Phosphatase 63 U/L (38-126) 01/16/17 13:25 Ammonia 21 umo/L (16-60) 01/15/17 12:20 Troponin I < 0.0120 ng/mL (0.00-0.120) 01/14/17 11:30 Total Protein 6.7 G/DL (6.3-8.2) 01/16/17 13:25 Albumin 3.4 g/dL (3.5-5.0) L 01/16/17 13:25 Globulin 3.3 gm/dL (2.2-3.9) 01/16/17 13:25 Albumin/Globulin Ratio 1.0 (1.0-2.1) 01/16/17 13:25 Amylase 103 U/L (30-110) 01/15/17 05:10 Lipase 235 U/L (23-300) 01/15/17 05:10 Alpha Fetoprotein 1.6 IU/mL (0.0-7.22) 01/15/17 12:20 Urine Color Radha (YELLOW) 01/14/17 12:45 Urine Clarity Slighty-cloudy (Clear) 01/14/17 12:45 Urine pH 5.0 (5.0-8.0) 01/14/17 12:45 Ur Specific Taylor 1.035 (1.003-1.030) H 01/14/17 12:45 Urine Protein 30 mg/dL (NEGATIVE) 01/14/17 12:45 Urine Glucose (UA) Neg mg/dL (Normal) 01/14/17 12:45 Urine Ketones Negative mg/dL (NEGATIVE) 01/14/17 12:45 Urine Blood Negative (NEGATIVE) 01/14/17 12:45 Urine Nitrate Negative (NEGATIVE) 01/14/17 12:45 Urine Bilirubin Small (NEGATIVE) 01/14/17 12:45 Urine Urobilinogen 2.0 mg/dL (0.2-1.0) 01/14/17 12:45 Ur Leukocyte Esterase Neg Jhoan/uL (Negative) 01/14/17 12:45 Urine Microscopic WBC < 1 /hpf (0-5) 01/14/17 12:45 Ur Squamous Epith Cells < 1 /hpf (0-5) 01/14/17 12:45 Urine Opiates Screen Negative (NEGATIVE) 01/15/17 22:17 Urine Methadone Screen Negative (NEGATIVE) 01/15/17 22:17 Ur Barbiturates Screen Negative (NEGATIVE) 01/15/17 22:17 Ur Phencyclidine Scrn Negative (NEGATIVE) 01/15/17 22:17 Ur Amphetamines Screen Negative (NEGATIVE) 01/15/17 22:17 U Benzodiazepines Scrn Negative (NEGATIVE) 01/15/17 22:17 U Oth Cocaine Metabols Negative (NEGATIVE) 01/15/17 22:17 U Cannabinoids Screen Negative (NEGATIVE) 01/15/17 22:17
--- NOTE | 2017-01-16 22:49 | CON ---
DATE: 01/15/2017 REFERRING PHYSICIAN: Albino Diana MD. REASON FOR CONSULTATION: Cirrhosis. HISTORY OF PRESENT ILLNESS: This is a 66-year-old male with history of alocohol abuse and cirrhotic, who cannot give history because he is actually very confused. He does not know where he is. He thinks he is at home and this [birth year] his birthday. The patient is lying in bed, comfortable, in no apparent distress. Apparently, he has been admitted for back pain and some right-sided weakness. Otherwise, the patient is lying in bed, comfortable, in no apparent distress. PAST MEDICAL HISTORY: As above. PAST SURGICAL HISTORY: As above. MEDICATIONS: Have been reviewed. REVIEW OF SYSTEMS: All other systems unable to obtain as the patient is a poor historian. PHYSICAL EXAMINATION: VITAL SIGNS: In the hospital, grossly unremarkable. GENERAL: This is a pleasant, elderly-appearing male, lying in bed comfortably, in no apparent distress. HEENT: Head normocephalic, atraumatic. Eyes: Pupils equal, round and reactive to light bilaterally. No conjunctival pallor or icterus. NECK: Supple. Normal range of motion. No lymphadenopathy appreciated. LUNGS: Coarse breath sounds bilaterally. HEART: S1, S2. Regular rate and rhythm. No murmurs appreciated. ABDOMEN: Soft, nontender. Bowel sounds present. No rebound. No guarding. RECTAL: Deferred. EXTREMITIES: Pulses felt bilaterally. SKIN: Warm, dry, and intact. NEUROLOGIC: A and O x2. LABORATORY DATA: Labs have been reviewed, WBC is 6.3, hemoglobin of 15.5, hematocrit 48.7, platelet count 244. Potassium is 3.5. Lipase is 330, AST is pending. CAT scan shows some gallstones. ASSESSMENT AND PLAN: This is a 66-year-old man with cirrhosis and cerebrovascular accident. From a gastrointestinal standpoint, get an ultrasound of the liver. Check an AFP, hepatitis panel as well as U-tox. Regarding the guaiac positivity in the past, can get elective colonoscopy as an outpatient. Hematocrit and hemoglobin, stable. We will follow the patient with you. Thank you for the consult. Filipe Porter MD/ PhD cc: Albino Diana MD
[2017-01-17 00:14] VITALS: RESP 18; O2SAT 98
[2017-01-17 08:46] VITALS: BP 118/76; PULSE 59; TEMP 97.9
--- NOTE | 2017-01-17 10:52 | CP.PCM.HP ---
History of Present Illness - History of Present Illness History of Present Illness: THis is a 66 y/o male admitted through the ER for right sided abdominal pain. family claims that he has the RUQ pain for sometime but has worsen in the past few days. At the ER he was noted to have cholelithiasis and mild elevation of lipase. He has a hx of CVA with left hemiparesis but was independent mostly at home although at times needed some assistance which was provided by his children. There was no fever no chest pain or SOB. accuchecks are normal. Present on Admission - Present on Admission Any Indicators Present on Admission: No History of DVT/PE: No History of Uncontrolled Diabetes: No Urinary Catheter: No Decubitus Ulcer Present: No Review of Systems - Neurological Neurological: Abnormal Gait Past Patient History - Past Medical History & Family History Past Medical History?: Yes - Past Social History Smoking Status: Former Smoker - CARDIAC Hx Cardiac Disorders: No - PULMONARY Hx Respiratory Disorders: No - NEUROLOGICAL Hx Neurological Disorder: Yes HX Cerebrovascular Accident: Yes (2006) - HEENT Hx HEENT Problems: No - RENAL Hx Chronic Kidney Disease: No - ENDOCRINE/METABOLIC Hx Endocrine Disorders: No - HEMATOLOGICAL/ONCOLOGICAL Hx Blood Disorders: No - INTEGUMENTARY Hx Dermatological Problems: No - MUSCULOSKELETAL/RHEUMATOLOGICAL Hx Musculoskeletal Disorders: No Hx Falls: No - GASTROINTESTINAL Hx Gastrointestinal Disorders: Yes Other/Comment: Gall stones. liver cirrhosis. GI bleed - GENITOURINARY/GYNECOLOGICAL Hx Genitourinary Disorders: Yes (Gall stones, liver cirrhosis) - PSYCHIATRIC Hx Psychophysiologic Disorder: No Hx Substance Use: No - SURGICAL HISTORY Hx Surgeries: No - ANESTHESIA Hx Anesthesia: No Meds Home Medications: Home Medication List Medication Instructions Recorded Confirmed Type traMADol [Ultram] 50 mg PO Q8 PRN #10 tab 01/16/17 Rx Allergies/Adverse Reactions: Allergies Allergy/AdvReac Type Severity Reaction Status Date / Time No Known Allergies Allergy Verified 01/14/17 09:04 Physical Exam - Head Exam Head Exam: NORMAL INSPECTION - Eye Exam Eye Exam: Normal appearance - ENT Exam ENT Exam: Mucous Membranes Moist - Respiratory Exam Respiratory Exam: NORMAL BREATHING PATTERN - Cardiovascular Exam Cardiovascular Exam: REGULAR RHYTHM - GI/Abdominal Exam GI & Abdominal Exam: Normal Bowel Sounds, Tenderness - Neurological Exam Neurological exam: Alert - Psychiatric Exam Psychiatric exam: Normal Mood - Skin Skin Exam: Dry Results - Vital Signs Recent Vital Signs: Last Vital Signs Temp 97.9 F 01/17/17 08:45 Pulse 59 L 01/17/17 08:45 Resp 18 01/17/17 08:45 BP 118/76 01/17/17 08:45 Pulse Ox 98 01/17/17 08:45 - Labs Result Diagrams: 01/16/17 06:45 01/16/17 06:45 Labs: Laboratory Results - last 24 hr 01/16/17 13:25 Total Bilirubin 0.9 Direct Bilirubin 0.4 AST 29 ALT 26 Alkaline Phosphatase 63 Total Protein 6.7 Albumin 3.4 L Globulin 3.3 Albumin/Globulin Ratio 1.0 Assessment & Plan (1) Pancreatitis, acute Status: Acute (2) Hypokalemia Status: Acute (3) Cholelithiasis Status: Chronic (4) Hepatic cirrhosis Status: Chronic (5) History of CVA (cerebrovascular accident) Status: Chronic (6) Gait abnormality Status: Acute - Assessment and Plan (Free Text) Plan: NPO and iv fluids recheck labs in am start Phys therapy GI eval Gen surgery eval.
--- NOTE | 2017-01-17 10:56 | CP.PCM.PN ---
Subjective - Date & Time of Evaluation Date of Evaluation: 01/17/17 Time of Evaluation: 10:54 - Subjective Subjective: pPatient is stable Has no chest pain or SOB afebrile Has no abd pain. Objective - Vital Signs/Intake and Output Vital Signs (last 24 hours): Temp Pulse Resp BP Pulse Ox 97.9 F 59 L 18 118/76 98 01/17/17 08:45 01/17/17 08:45 01/17/17 08:45 01/17/17 08:45 01/17/17 08:45 - Medications Medications: Current Medications Lactulose (Enulose) 20 gm PO BID PRN PRN Reason: Constipation Last Admin: 01/16/17 08:57 Dose: 20 gm Tramadol HCl (Ultram) 50 mg PO Q8 PRN PRN Reason: Pain, moderate (4-7) - Labs Labs: 01/16/17 06:45 01/16/17 06:45 - Head Exam Head Exam: NORMAL INSPECTION - Eye Exam Eye Exam: Normal appearance - ENT Exam ENT Exam: Mucous Membranes Moist - Respiratory Exam Respiratory Exam: Accessory Muscle Use, Clear to Ausculation Bilateral - Cardiovascular Exam Cardiovascular Exam: REGULAR RHYTHM - GI/Abdominal Exam GI & Abdominal Exam: Normal Bowel Sounds Assessment and Plan (1) Pancreatitis, acute Status: Acute (2) Hypokalemia Status: Acute (3) Cholelithiasis Status: Chronic (4) Hepatic cirrhosis Status: Chronic (5) History of CVA (cerebrovascular accident) Status: Chronic (6) Gait abnormality Status: Acute - Assessment and Plan (Free Text) Plan: stable for transfer to subacute rehab follow up with GI in few weeks.
== END 2017-01-17 11:10 | DRG 439 ==
LOC: H.ER 08:40 → H.ERHOLD 15:18 → H.MEDSURG1 17:04
PROVIDERS: ADMIT Family Medicine; ATTEND Family Medicine
DX: K85.20 Alcohol induced acute pancreatitis without necrosis or infection (principal); K70.30 Alcoholic cirrhosis of liver without ascites; K76.6 Portal hypertension; I69.351 Hemiplegia and hemiparesis following cerebral infarction affecting right dominant side; K80.20 Calculus of gallbladder without cholecystitis without obstruction; E87.6 Hypokalemia; F10.10 Alcohol abuse, uncomplicated; F43.20 Adjustment disorder, unspecified; K44.9 Diaphragmatic hernia without obstruction or gangrene; R26.9 Unspecified abnormalities of gait and mobility; Z87.891 Personal history of nicotine dependence

== ENCOUNTER 2017-03-13 09:52 | Day surgery (SDC) | payer MEDICARE ==
[2017-03-13 10:25] VITALS: BMI 25.7
[2017-03-13] MEDS ORDERED: Midazolam 2 MG/2 ML VIAL ONE (11:48)
[2017-03-13] MEDS ORDERED: Propofol 10 mg/ml Inj (20 ML) ONE (11:48)
[2017-03-13] MEDS ORDERED: Lidocaine 2% MPF (5 ml) Inj ONE (11:49)
[2017-03-13] MEDS ORDERED: Lactated Ringer's 500 ML IV ONE (11:55)
[2017-03-13 12:47] VITALS: RESP 19; TEMP 97; O2SAT 98
[2017-03-13 13:06] VITALS: BP 114/81; PULSE 84
== END 2017-03-13 13:05 | disposition home or self-care (01) ==
LOC: H.ENDO 09:52
PROVIDERS: ATTEND Internal Medicine Gastroenterology
DX: Z12.11 Encounter for screening for malignant neoplasm of colon (principal); K70.30 Alcoholic cirrhosis of liver without ascites; Z86.73 Personal history of transient ischemic attack (TIA), and cerebral infarction without residual deficits; K86.1 Other chronic pancreatitis; K64.8 Other hemorrhoids; D12.5 Benign neoplasm of sigmoid colon; I85.00 Esophageal varices without bleeding; K44.9 Diaphragmatic hernia without obstruction or gangrene; K31.9 Disease of stomach and duodenum, unspecified; D64.9 Anemia, unspecified; K29.50 Unspecified chronic gastritis without bleeding
CPT/HCPCS: 43239; 45385; 88305; J2250; J2704; J7120